=== PATIENT | male | born 1975 | race Native Hawaiian/Other Pacific Islander ===

== ENCOUNTER 2018-10-06 11:55 | Inpatient (IN) | payer OTHER ==
--- NOTE | 2018-10-06 13:54 | ED PDOC ---
HPI: Back Time Seen by Provider: 10/06/18 12:52 Chief Complaint (Nursing): Back Pain Chief Complaint (Provider): back pain History Per: Patient History/Exam Limitations: no limitations Additional Complaint(s): 42 y/o M with no significant PMH who presents with recurrent back pain. Pt states that he had an accident at work 1 year ago and was diagnosed with lumbar herniated disk treated with Naproxen. Now having burning sensation on plantar left foot and shooting pain from back down left buttock into left foot. Denies fever, chills, urinary or fecal incontinence. + mild weakness in Left leg. Last took Naproxen 500mg PO at 10am this morning. Past Medical History Reviewed: Historical Data, Nursing Documentation, Vital Signs Vital Signs: Last Vital Signs Temp 98.4 F 10/06/18 12:26 Pulse 81 10/06/18 12:26 Resp 17 10/06/18 12:26 BP 125/80 10/06/18 12:26 Pulse Ox 98 10/06/18 12:26 Primary Care Provider: DoctorRanjeet - Medical History PMH: No Chronic Diseases - Surgical History Other surgeries: Left fibula surgery - Family History Family History: States: Unknown Family Hx - Home Medications Home Medications: Ambulatory Orders Medication Instructions Recorded Multivitamin [Multi-Vitamin Daily] 1 tab PO DAILY 10/06/18 Naproxen [Naprosyn] 500 mg PO BID 10/06/18 - Allergies Allergies/Adverse Reactions: Allergies Allergy/AdvReac Type Severity Reaction Status Date / Time No Known Allergies Allergy Verified 10/06/18 12:26 Review of Systems Constitutional: Negative for: Fever Musculoskeletal: Positive for: Back Pain Neurological: Positive for: Weakness, Numbness Physical Exam - Reviewed Nursing Documentation Reviewed: Yes Vital Signs Reviewed: Yes - Physical Exam Appears: Positive for: Uncomfortable Back: Positive for: Vertebral Tenderness (lumbar spine on palpation with pain on palpation in left buttock), Decreased ROM (unable to flex back), Other (no erythema, swelling) Extremity: Negative for: Normal ROM (decreased flexion of left hip. ) Neurological/Psych: Positive for: Awake, Alert, Oriented, Motor/Sensory Deficits (decreased sensation on left Lower extremity. Decreased strength in LLE against resistance when compared to Right. ) - Laboratory Results Result Diagrams: 10/06/18 14:20 10/06/18 14:20 - ECG O2 Sat by Pulse Oximetry: 98 Medical Decision Making Medical Decision Making: Consult Dr. Schmitz (neurosurgery) Case discussed with Dr. Schmitz (neurosurgery), pt to be admitted under Dr. Lewis for surgery tomorrow as has known lumbar disk herniation with worsening symptoms. CXR, EKG, CBC, BMP, PT/PTT/INR requested for admission. 14:00: Case discussed with Dr. Lewis who accepts admission. Care transferred and bridge orders placed. Disposition - Clinical Impression Clinical Impression: Lumbar radiculopathy - Patient ED Disposition Is Patient to be Admitted: Yes Discussed With : Chong Lewis - Disposition Disposition: Transfer of Care Disposition Time: 14:05 Condition: FAIR
[2018-10-06 14:28] LABS: BASO % 0.7 % (0.0-2.0); EOS # 0.3 K/uL (0.0-0.7); EOS % 4.6 % (0.0-4.0); HEMOGLOBIN 13.2 g/dL (12.0-18.0); LYMPH # 1.7 K/uL (1.0-4.3); LYMPH % 30.4 % (20.0-40.0); MEAN CELL VOLUME 83.5 fl (80.0-94.0); MEAN CORPUSCULAR HEMOGLOBIN 27.9 pg (27.0-31.0); MEAN CORPUSCULAR HGB CONC 33.4 g/dL (33.0-37.0); MEAN PLATELET VOLUME 12.9 fl (7.2-11.7); MONO # 0.4 K/uL (0.0-0.8); MONO % 6.2 % (0.0-10.0); NEUT # 3.3 K/uL (1.8-7.0); NEUT % 58.1 % (50.0-75.0); NRBC % 0.1 % (0.0-0.0); RBC 4.73 Mil/uL (4.40-5.90); RED CELL DISTRIBUTION WIDTH 13.5 % (11.5-14.5); WHITE BLOOD COUNT 5.7 K/uL (4.8-10.8)
[2018-10-06 14:30] LABS: INR 1.1; PROTHROMBIN TIME 12.6 Seconds (9.8-13.1)
[2018-10-06 14:32] LABS: PARTIAL THROMBOPLASTIN TIME 32.9 Seconds (25.6-37.1)
[2018-10-06 14:45] LABS: BLOOD UREA NITROGEN 14 mg/dl (9-20); CALCIUM 9.4 mg/dL (8.4-10.2); GFR NON-AFRICAN AMERICAN > 60
--- NOTE | 2018-10-06 16:29 | RAD ---
Date of service: 10/06/2018 HISTORY: shortness of breath, cough COMPARISON: No prior. TECHNIQUE: Chest PA and lateral views FINDINGS: LUNGS: No active pulmonary disease. PLEURA: No significant pleural effusion identified. No pneumothorax apparent. CARDIOVASCULAR: No aortic atherosclerotic calcification present. Normal cardiac size. No pulmonary vascular congestion. OSSEOUS STRUCTURES: No significant abnormalities. VISUALIZED UPPER ABDOMEN: Normal. OTHER FINDINGS: None. IMPRESSION: No active disease.
[2018-10-06] MEDS ORDERED: HYDROmorphone 0.5 mg/0.5 ml ISec IVP PRN (17:53)
[2018-10-06] MEDS ORDERED: Naproxen 500 MG TAB PO PRN (17:56)
[2018-10-07] MEDS: Lactated Ringer's 1,000 ML IV SCH ×3 (05:35→23:08)
--- NOTE | 2018-10-07 07:10 | CP.PCM.CON ---
History of Present Illness - History of Present Illness History of Present Illness: Neurosurgical consult/H&P: [place]elley Patient is a 42 y/o male who presents with c/o severe lower back pain. 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 He has tried and failed conservative means since then with PT and oral medication. He is having daily pain which hinders his activities such as walking and standing. He now ambulates with the aid of a cane secondary to the pain. He admits to radiation of pain/numbness/tingling to the LLE. He had radiation of pain and paresthesias to the RLE but now his symptoms are worse to the LLE. He denies bowel/bladder dysfunction and saddle paresthesias. He currently also denies CP/SOB/N/V/D/fever/dysuria/melena. PMH: denies PSH: L tibia ORIF meds: as per med rec Allergy: NKDA SH: denies ETOH/obacco/drug use Review of Systems - Review of Systems All systems: reviewed and no additional remarkable complaints except Review of Systems: as per HPI Past Patient History - Past Medical History & Family History Past Family History: Reviewed and not pertinent - Past Social History Smoking Status: Never Smoked - MUSCULOSKELETAL/RHEUMATOLOGICAL Hx Falls: Yes - PSYCHIATRIC Hx Substance Use: No Meds Allergies/Adverse Reactions: Allergies Allergy/AdvReac Type Severity Reaction Status Date / Time No Known Allergies Allergy Verified 10/06/18 12:26 - Medications Medications: Current Medications Hydromorphone HCl (Dilaudid) 1 mg IVP Q4 PRN PRN Reason: Pain 6-10 Last Admin: 10/06/18 21:19 Dose: 1 mg Lactated Ringer's (Lactated Ringer's) 1,000 mls @ 80 mls/hr IV .[id number] Last Admin: 10/07/18 05:35 Dose: 80 mls/hr Multivitamins/Minerals (Therapeutic-M Tab) 1 tab PO DAILY [facility] Naproxen (Naproxen) 500 mg PO Q12 PRN PRN Reason: Pain 1-5 Physical Exam - Constitutional Appears: Well, No Acute Distress - Head Exam Head Exam: ATRAUMATIC, NORMOCEPHALIC - Eye Exam Eye Exam: EOMI, Normal appearance - ENT Exam ENT Exam: Mucous Membranes Moist - Respiratory Exam Respiratory Exam: NORMAL BREATHING PATTERN - GI/Abdominal Exam GI & Abdominal Exam: Soft. absent: Tenderness - Extremities Exam Extremities exam: Positive for: normal inspection - Back Exam Additional comments: No lesions/masses/erythema diffuse lumbar midline and paraspinal tenderness sensation intact SP/DP/TN motor intact EHl/FHL/TA/G neg clonus +SLR BLE - Neurological Exam Neurological exam: Alert, CN II-XII Intact, Oriented x3 - Psychiatric Exam Psychiatric exam: Normal Affect, Normal Mood - Skin Skin Exam: Normal Color, Warm Results - Vital Signs Recent Vital Signs: Last Vital Signs Temp 97.4 F L 10/06/18 23:58 Pulse 82 10/06/18 23:58 Resp 18 10/06/18 23:58 BP 111/72 10/06/18 23:58 Pulse Ox 97 10/06/18 23:58 - Labs Result Diagrams: 10/06/18 14:20 10/06/18 14:20 Labs: Laboratory Results - last 24 hr 10/06/18 10/06/18 10/06/18 14:20 14:20 14:20 WBC 5.7 RBC 4.73 Hgb 13.2 Hct 39.5 MCV 83.5 MCH 27.9 MCHC 33.4 RDW 13.5 Plt Count 120 L MPV 12.9 H Neut % (Auto) 58.1 Lymph % (Auto) 30.4 [place] % (Auto) 6.2 Eos % (Auto) 4.6 H Baso % (Auto) 0.7 Neut # (Auto) 3.3 Lymph # (Auto) 1.7 [place] # (Auto) 0.4 Eos # (Auto) 0.3 Baso # (Auto) 0.0 PT 12.6 INR 1.1 APTT 32.9 Sodium 138 Potassium 4.1 Chloride 106 Carbon Dioxide 22 Anion Gap 14 BUN 14 Creatinine 0.8 Est GFR ( Amer) > 60 Est GFR (Non-Af Amer) > 60 Random Glucose 91 Calcium 9.4 - Impressions Impression: MRI of lumbar spine from outside facility reveals lumbar disc herniation at L4- L5 and L5-S1 Assessment & Plan (1) Lumbar disc herniation Assessment and Plan: Dr. Schmitz has seen, examined the patient and reviewed his MRI imaging. The plan is to perform lumbar laminectomy and annuloplasty at L4-5 and L5-S1. Patient states that his pain mostly radiates to his LLE currently, but had pain to the RLE in the past. Risks/benefits/alternatives explained to patient who understands and agrees to p shey with above NPO d/w Dr. Schmitz who agrees with above Status: Acute - Date & Time Date: 10/07/18 Time: 07:10
[2018-10-07] MEDS ORDERED: Midazolam 2 MG/2 ML VIAL ONE (07:37)
[2018-10-07] MEDS ORDERED: Propofol 10 mg/ml Inj (20 ML) ONE (07:37)
[2018-10-07] MEDS ORDERED: Lidocaine 4% (Laryng-O-Jet) Kit MM ONE (07:37)
[2018-10-07] MEDS ORDERED: Rocuronium 10 mg/ml (5 ml) ONE (07:39)
[2018-10-07] MEDS ORDERED: Absorbable Gelatin Sponge Size 12-7 ONE (08:05)
[2018-10-07] MEDS ORDERED: Lidocaine 1% Inj (20ml) ONE (08:05)
[2018-10-07] MEDS ORDERED: Lidocaine 2% w Epi 1:100,000 Inj IJ ONE (08:06)
[2018-10-07] MEDS ORDERED: Bacitracin Ointment 30 GM TUBE ONE (08:06)
[2018-10-07] MEDS ORDERED: Thrombin Topical 5,000 Int Units Spray Kit ONE (08:06)
[2018-10-07] MEDS ORDERED: Bupivacaine 0.5% Inj(30mL) ONE (08:06)
[2018-10-07] MEDS ORDERED: Lactated Ringer's 1,000 ML IV ONE ×2 (08:35→10:00)
[2018-10-07] MEDS ORDERED: Naproxen 500 MG TAB PO SCH (09:00)
[2018-10-07] MEDS ORDERED: Succinylcholine Chloride 20 mg/ml Syr (5 ml) IV ONE (09:09)
[2018-10-07] MEDS: Multivitamin With Minerals Tab PO SCH ×2 (09:14→17:41)
[2018-10-07] MEDS ORDERED: Dexamethasone 4 mg/1 ml ONE (09:24)
--- NOTE | 2018-10-07 09:26 | CP.PCM.HP ---
History of Present Illness - History of Present Illness History of Present Illness: CC: Lower back pain HPI: Pt presented to the ED with acute on chronic back pain s/p accident at work 1 year ago. He originally attempted conservative measures for lumbar disk herniation, however his pain went unrelieved. The pt presents with worsening, sciatic-type pain from the buttocks to the legs. He is for surgery today with Dr. Schmitz, neurosurgery. PMH: Unremarkable. PSH: left fibula surgery. Allergies: NKDA. Assessment/Impression/Plan: 1.) Intractable back pain -EKG, labs, and CXR reviewed- unremarkable. -NPO since midnight. -For lumbar procedure with Dr. Schmitz, neurosurgery today. -Medically cleared for surgery at this time. Present on Admission - Present on Admission Any Indicators Present on Admission: No Past Patient History - Past Medical History & Family History Past Family History: Reviewed and not pertinent - Past Social History Smoking Status: Never Smoked - MUSCULOSKELETAL/RHEUMATOLOGICAL Hx Falls: Yes - PSYCHIATRIC Hx Substance Use: No Meds Allergies/Adverse Reactions: Allergies Allergy/AdvReac Type Severity Reaction Status Date / Time No Known Allergies Allergy Verified 10/06/18 12:26 Results - Vital Signs Recent Vital Signs: Last Vital Signs Temp 97.9 F 10/07/18 09:05 Pulse 72 10/07/18 09:05 Resp 18 10/07/18 09:05 BP 119/85 10/07/18 09:05 Pulse Ox 98 10/07/18 09:05 - Labs Result Diagrams: 10/06/18 14:20 10/06/18 14:20 Labs: Laboratory Results - last 24 hr 10/06/18 10/06/18 10/06/18 14:20 14:20 14:20 WBC 5.7 RBC 4.73 Hgb 13.2 Hct 39.5 MCV 83.5 MCH 27.9 MCHC 33.4 RDW 13.5 Plt Count 120 L MPV 12.9 H Neut % (Auto) 58.1 Lymph % (Auto) 30.4 [place] % (Auto) 6.2 Eos % (Auto) 4.6 H Baso % (Auto) 0.7 Neut # (Auto) 3.3 Lymph # (Auto) 1.7 [place] # (Auto) 0.4 Eos # (Auto) 0.3 Baso # (Auto) 0.0 PT 12.6 INR 1.1 APTT 32.9 Sodium 138 Potassium 4.1 Chloride 106 Carbon Dioxide 22 Anion Gap 14 BUN 14 Creatinine 0.8 Est GFR ( Amer) > 60 Est GFR (Non-Af Amer) > 60 Random Glucose 91 Calcium 9.4 Assessment & Plan (1) Lumbar disc herniation Status: Acute (2) Lumbar radiculopathy Status: Acute
[2018-10-07] MEDS ORDERED: Neostigmine 1:1000 (1 mg/ml) Inj ONE (09:36)
[2018-10-07] MEDS ORDERED: Bupivacaine 0.5% Inj(30mL) IJ ONE (10:22)
[2018-10-07] MEDS ORDERED: HYDROmorphone 0.5 mg/0.5 ml ISec IVP PRN (10:40)
--- NOTE | 2018-10-07 10:42 | PCM.SURG1 ---
Surgeon's Initial Post Op Note - Surgeon's Notes Surgeon: Jimmy Schmitz MD Microfilm Processor: Arsenio Aburto PA-C Type of Anesthesia: General Endo Anesthesia Administered By: Nemesio Gore MD Pre-Operative Diagnosis: Lumbar disc herniation Operative Findings: see complete operative report Post-Operative Diagnosis: Lumbar disc herniation at L4-L5 and L5-S1 Operation Performed: Lumbar laminectomy and annuloplasty at L4-L5 and L5-S1 Specimen/Specimens Removed: none Estimated Blood Loss: EBL {In ML}: 25 Blood Products Given: N/A Drains Used: Shashi Gonzalez (x1 left back) Date of Surgery/Procedure: 10/07/18 Time of Surgery/Procedure: 09:05
--- NOTE | 2018-10-07 10:45 | CARD ---
APPROVED REPORT Date of service: 10/06/2018 EKG Measurement Heart [id number] <Conclusion> Normal sinus rhythm Nonspecific ST and T wave abnormality Abnormal ECG
[2018-10-07] MEDS ORDERED: Oxycodone/Acetaminophen 5/325 mg Tab PO PRN (10:46)
[2018-10-07] MEDS ORDERED: Lactated Ringer's 1,000 ML IV SCH (11:00)
--- NOTE | 2018-10-07 12:28 | RAD ---
PROCEDURE: HISTORY: As above COMPARISON: None TECHNIQUE: Total fluoroscopic time utilized during the procedure: 12.2 seconds ; 8.09 mGy FINDINGS: Submitted images from the current procedure: 6 Please refer to the physician's notes performing the procedure. IMPRESSION: Less than 1 hour fluoroscopic time utilized during performance of the procedure
[2018-10-07] MEDS: ceFAZolin 2 GM in Sodium Chloride 0.9% 100 ML IVPB SCH (17:56)
[2018-10-08] MEDS: ceFAZolin 2 GM in Sodium Chloride 0.9% 100 ML IVPB SCH (01:21)
[2018-10-08] MEDS: Oxycodone/Acetaminophen 5/325 mg Tab PO PRN ×3 (01:36→13:40)
--- NOTE | 2018-10-08 04:58 | OP ---
PROCEDURE DATE: 10/07/2018 PREOPERATIVE DIAGNOSIS: Herniated lumbar disk, L4-L5 and L5-S1. POSTOPERATIVE DIAGNOSIS: Herniated lumbar disk L4-5 and L5-S1. PROCEDURES: Lumbar laminectomy at L4-L5 and L5-S1 and decompression and radiofrequency annuloplasty at L4-L5 and L5-S1. Fluoroscopy has been used. Microscopy has been used. SURGEON: Jimmy Schmitz MD TECHNOLOGY DIRECTOR: Arsenio Aburto PA-C. Arsenio Aburto is a physician assistant plant controller who helped me to perform the surgery and stayed throughout the case from beginning to the end. DESCRIPTION OF PROCEDURE: The patient was brought to the operating room, anesthetized with general endotracheal anesthesia, placed in a prone position on the Shashi table. Care was taken to protect all pressure points. Back of the lumbar area was thoroughly prepped and draped in a standard sterile manner after marking skin incision for lumbar laminectomy at L4-5 and L5-S1. After prepping and draping the area, skin has been incised. Bleeding skin has been controlled with bipolar roving winder. After using a Bovie roving winder, paraspinal muscles have been detached from the spinous process and lamina at L4-5 and L5-S1 on the left side. After this, a Stacie retractor has been applied to alter the facet joint of L4-L5 and by using a high-speed drill, the lamina of L4-L5 and medial part of the L4 have been drilled. Drilling is continued until the top and bottom of the ligamentum flavum was seen. Drilling was also continued on the medial part of the facets until the turn of ligamentum was seen. Once this had been done, thinned out the lamina, medial part of the facets and ligamentum flavum has been removed. Part of the spinous process has been removed in the midline, the ligamentum flavum and across the midline also the ligamentum flavum has been removed. Similarly, at L5-S1, a medial facetectomy, hemilaminotomy has been performed decompressing this area after removing the thinned out bone as well as the medial part of the facets and also midline has been decompressed and ligamentum flavum has been removed from both sides. Once this has been done by using a radiofrequency needles, placed at L4-L5 and L5-S1, 90 degrees Celsius, 2-minute duration has been created. The patient tolerated the procedure. After the procedure, Shashi drain was placed in the wound, brought out through a separate stab neck skin incision. Muscles and fascia were closed with 1 Vicryl, subcutaneous with 3-0 Vicryl, and skin has been closed with intradermal stitches. The patient tolerated the procedure. After the procedure, mobilized to the recovery room in stabilized condition. Jimmy Schmitz MD
[2018-10-08 06:58] LABS: HEMOGLOBIN 12.2 g/dL (12.0-18.0); MEAN CELL VOLUME 83.8 fl (80.0-94.0); MEAN CORPUSCULAR HEMOGLOBIN 27.8 pg (27.0-31.0); MEAN CORPUSCULAR HGB CONC 33.2 g/dL (33.0-37.0); RBC 4.39 Mil/uL (4.40-5.90); RED CELL DISTRIBUTION WIDTH 13.9 % (11.5-14.5); WHITE BLOOD COUNT 11.3 K/uL (4.8-10.8)
[2018-10-08] MEDS: Lactated Ringer's 1,000 ML IV SCH (07:00)
[2018-10-08 07:18] LABS: BLOOD UREA NITROGEN 13 mg/dl (9-20); CALCIUM 8.7 mg/dL (8.4-10.2); GFR NON-AFRICAN AMERICAN > 60
[2018-10-08 08:01] VITALS: PULSE 66; RESP 20; TEMP 98; O2SAT 98
[2018-10-08] MEDS: Multivitamin With Minerals Tab PO SCH (08:34)
--- NOTE | 2018-10-08 09:02 | CP.PCM.PN ---
Subjective - Date & Time of Evaluation Date of Evaluation: 10/08/18 Time of Evaluation: 07:30 - Subjective Subjective: Patient seen and examined at bedside. Pain is well controlled. No acute events overnight. No other complaints. Objective - Vital Signs/Intake and Output Vital Signs (last 24 hours): Temp Pulse Resp BP Pulse Ox 98.0 F 66 20 115/71 98 10/08/18 08:00 10/08/18 08:00 10/08/18 08:00 10/08/18 08:00 10/08/18 08:00 Intake and Output: 10/08/18 10/08/18 06:59 18:59 Intake Total 1260 Output Total 25 Balance 1235 - Medications Medications: Current Medications Acetaminophen (Tylenol 325mg Tab) 650 mg PO Q4 PRN PRN Reason: Fever 101 degrees fahrenheit Cyclobenzaprine HCl (Flexeril) 10 mg PO Q8 PRN PRN Reason: Muscle spasm Dexamethasone (Decadron) 4 mg PO Q8 [facility] Last Admin: 10/08/18 08:34 Dose: 4 mg Docusate Sodium (Colace) 100 mg PO BID [facility] Last Admin: 10/08/18 08:34 Dose: 100 mg Hydromorphone HCl (Dilaudid) 1 mg IVP Q4 PRN PRN Reason: Pain 6-10 Last Admin: 10/06/18 21:19 Dose: 1 mg Lactated Ringer's (Lactated Ringer's) 1,000 mls @ 80 mls/hr IV .[id number] [facility] Last Admin: 10/08/18 07:00 Dose: Not Given Morphine Sulfate (Morphine) 2 mg IVP Q4 PRN PRN Reason: Pain, severe (8-10) Multivitamins/Minerals (Therapeutic-M Tab) 1 tab PO DAILY [facility] Last Admin: 10/08/18 08:34 Dose: 1 tab Naproxen (Naproxen) 500 mg PO Q12 PRN PRN Reason: Pain 1-5 Ondansetron HCl (Zofran Inj) 4 mg IVP Q4 PRN PRN Reason: Nausea/Vomiting Oxycodone/Acetaminophen (Percocet 5/325 Mg Tab) 2 tab PO Q4 PRN PRN Reason: Pain, moderate (4-7) Stop: 10/10/18 10:47 Last Admin: 10/08/18 08:42 Dose: 2 tab Oxycodone/Acetaminophen (Percocet 5/325 Mg Tab) 1 tab PO Q4 PRN PRN Reason: Pain, Mild (1-3) Stop: 10/10/18 10:47 - Labs Labs: 10/08/18 05:55 10/08/18 05:55 PT 12.6 Seconds (9.8-13.1) 10/06/18 14:20 INR 1.1 10/06/18 14:20 APTT 32.9 Seconds (25.6-37.1) 10/06/18 14:20 - Back Exam Additional comments: Mild leobardo wound tenderness Dressings CDI Incision CDI MARISOL drain intact with mild serosang drainage (50cc in 24hrs) sensation intact SP/DP/Tn motor intact EHL/FHL/TA/G neg clonus Assessment and Plan (1) Lumbar disc herniation Assessment & Plan: POD# 1 s/p L4-S1 laminectomy -pain controlled -Drain removed, dressings changed -PT/OT -Neurosurgically cleared for d/c to home -f/u in office in 7-10 days -d/w Dr. Schmitz who agrees with above Status: Acute
[2018-10-08 12:11] VITALS: BP 121/83
--- NOTE | 2018-10-08 17:56 | CP.PCM.DIS ---
Provider - Provider Date of Admission: 10/06/18 14:05 Attending physician: Chong Lewis MD Consults: 10/06/18 18:52 Neuro Surgery Consult Routine Comment: Consulting Provider: Jimmy Schmitz Consulting Physician: Jimmy Schmitz Reason for Consult: INTRACTABLE BACK PAIN Time Spent in preparation of Discharge (in minutes): 30 Diagnosis - Discharge Diagnosis (1) Lumbar disc herniation Status: Acute (2) Lumbar radiculopathy Status: Acute Hospital Course - Lab Results Lab Results: Most Recent Lab Values WBC 11.3 K/uL (4.8-10.8) H D 10/08/18 05:55 RBC 4.39 Mil/uL (4.40-5.90) L 10/08/18 05:55 Hgb 12.2 g/dL (12.0-18.0) 10/08/18 05:55 Hct 36.8 % (35.0-51.0) 10/08/18 05:55 MCV 83.8 fl (80.0-94.0) 10/08/18 05:55 MCH 27.8 pg (27.0-31.0) 10/08/18 05:55 MCHC 33.2 g/dL (33.0-37.0) 10/08/18 05:55 RDW 13.9 % (11.5-14.5) 10/08/18 05:55 Plt Count 122 K/uL (130-400) L 10/08/18 05:55 MPV 12.9 fl (7.2-11.7) H 10/06/18 14:20 Neut % (Auto) 58.1 % (50.0-75.0) 10/06/18 14:20 Lymph % (Auto) 30.4 % (20.0-40.0) 10/06/18 14:20 [place] % (Auto) 6.2 % (0.0-10.0) 10/06/18 14:20 Eos % (Auto) 4.6 % (0.0-4.0) H 10/06/18 14:20 Baso % (Auto) 0.7 % (0.0-2.0) 10/06/18 14:20 Neut # (Auto) 3.3 K/uL (1.8-7.0) 10/06/18 14:20 Lymph # (Auto) 1.7 K/uL (1.0-4.3) 10/06/18 14:20 [place] # (Auto) 0.4 K/uL (0.0-0.8) 10/06/18 14:20 Eos # (Auto) 0.3 K/uL (0.0-0.7) 10/06/18 14:20 Baso # (Auto) 0.0 K/uL (0.0-0.2) 10/06/18 14:20 PT 12.6 Seconds (9.8-13.1) 10/06/18 14:20 INR 1.1 10/06/18 14:20 APTT 32.9 Seconds (25.6-37.1) 10/06/18 14:20 Sodium 138 mmol/l (132-148) 10/08/18 05:55 Potassium 4.0 MMOL/L (3.6-5.0) 10/08/18 05:55 Chloride 104 mmol/L (98-107) 10/08/18 05:55 Carbon Dioxide 25 mmol/L (22-30) 10/08/18 05:55 Anion Gap 13 (10-20) 10/08/18 05:55 BUN 13 mg/dl (9-20) 10/08/18 05:55 Creatinine 0.9 mg/dl (0.8-1.5) 10/08/18 05:55 Est GFR ( Amer) > 60 10/08/18 05:55 Est GFR (Non-Af Amer) > 60 10/08/18 05:55 Random Glucose 112 mg/dL (75-110) H 10/08/18 05:55 Calcium 8.7 mg/dL (8.4-10.2) 10/08/18 05:55 - Hospital Course Hospital Course: 42 y/o male who presented with c/o severe lower back pain. 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 He has tried and failed conservative means since then w ith PT and oral medication. Neurosurgery was consulted. Operation Performed: Lumbar laminectomy and annuloplasty at L4-L5 and L5-S1. Patient discharged in stable condition. Discharge Exam - Head Exam Head Exam: ATRAUMATIC, NORMOCEPHALIC - Eye Exam Eye Exam: Normal appearance - Respiratory Exam Respiratory Exam: NORMAL BREATHING PATTERN - Cardiovascular Exam Cardiovascular Exam: +S1, +S2 - GI/Abdominal Exam GI & Abdominal Exam: Unremarkable - Neurological Exam Neurological exam: Alert, Oriented x3 - Psychiatric Exam Psychiatric exam: Normal Affect, Normal Mood - Skin Skin Exam: Normal Color, Warm Discharge Plan - Discharge Medications Prescriptions: Cyclobenzaprine [Flexeril] 10 mg PO Q8 PRN #20 tab PRN Reason: Muscle Spasm Methylprednisolone [Medrol Dose Pack (21 tabs)] 4 mg PO DAILY #21 mg oxyCODONE/Acetaminophen [Percocet 5/325 mg Tab] 1 tab PO Q6 PRN #10 tab PRN Reason: Pain, Moderate (4-7) - Follow Up Plan Condition: STABLE Disposition: HOME/ ROUTINE Instructions: Radiculopathy (DC), Laminectomy (DC) Additional Instructions: weight bearing as tolerated Referrals: Jimmy Schmitz MD [Staff Provider] - Chong Lewis MD [Staff Provider] -
== END 2018-10-08 14:44 | disposition home or self-care (01) | DRG 520 ==
LOC: H.ER 11:55 → H.ERHOLD 14:05 → H.MEDSURG1 17:10
PROVIDERS: ADMIT Family Medicine; ATTEND Family Medicine
PROC: 0S5 Lower Joints, Destruction (ICD-10-PCS; principal; 2018-10-07 09:15)
DX: M51.17 Intervertebral disc disorders with radiculopathy, lumbosacral region (principal); V00-Y99 External causes of morbidity